=== PATIENT | male | born 1975 | race African-American/Black ===

== ENCOUNTER 2018-11-10 00:17 | Emergency (ER) | payer OTHER ==
[~2018-11-10] VITALS: Ht 188 cm; Wt 105.7 kg
[~2018-11-10 00:17] MED LIST: CYCL10TA7 PO; MELO7.5T38 PO; NAPR-985 PO
[2018-11-10] MEDS ORDERED: KETOROLAC 30 MG INJ IM STA (00:34)
[2018-11-10 00:55] VITALS: Ht 188 cm; Wt 105.7 kg
[2018-11-10 01:28] VITALS: BP 166/97; PULSE 61; RESP 18
== END 2018-11-10 01:25 | disposition home or self-care (01) ==
LOC: FTE 00:17
DX: M25.511 Pain in right shoulder (principal)
CPT/HCPCS: 96372

== ENCOUNTER → 2018-11-12 | Emergency (ER) | payer OTHER ==
[~2018-11-12] VITALS: Ht 188 cm; Wt 90.0 kg
[~2018-11-12] MED LIST changes: +KETOROLAC 60 MG INJ IM STA; +METHOCARBAMOL 750 MG TAB PO ONE
[2018-11-12 09:32] VITALS: BP 157/91; PULSE 90; RESP 18; Ht 188 cm; Wt 90.0 kg
--- NOTE | 2018-11-12 10:30 | ERD ---
ER Documentation Chief Complaint Chief Complaint back pain HPI Patient is a 42 years old male with no known past medical history presenting to the clinic for persistent right shoulder pain X few days. Patient was seen and evaluated on November 10, 2018 for similar symptoms and was diagnosed with muscle spasm. Patient was discharged with cyclobenzaprine and naproxen. Patient had no imaging done during last visit. Patient reports that he has made an appointment with his PCP. Patient admits that he has difficulties doing his job tasks due to shoulder pain and is requesting further medical evaluation. Denies any injury or trauma. Vision report the blue admits to some stiffness and weakness of the right arm. Patient denies any neck stiffness, fever, chills, night sweats. ROS All systems reviewed and are negative except as per history of present illness. Medications Home Meds Active Scripts Meloxicam* (Meloxicam*) 7.5 Mg Tablet, 7.5 MG PO DAILY, #30 TAB Prov:NAIF NELSON PA-C 11/12/18 Naproxen* (Naprosyn*) 500 Mg Tablet, 500 MG PO BID PRN for PAIN AND/OR INFLAMMATION, #30 TAB Prov:ABIMAEL PAGE PA-C 11/10/18 Cyclobenzaprine Hcl* (Cyclobenzaprine Hcl*) 10 Mg Tablet, 10 MG PO TID, #15 TAB Prov:ABIMAEL PAGE PA-C 11/10/18 Allergies Allergies: Coded Allergies: No Known Allergy (Unverified , 11/12/18) PMhx/Soc History of Surgery: Yes (LEG AND NECK SURGERY ) Anesthesia Reaction: No Hx Neurological Disorder: No Hx Respiratory Disorders: No Hx Cardiac Disorders: Yes (PE WAS ON COUMADIN ) Hx Psychiatric Problems: No Hx Miscellaneous Medical Probl: No Hx Alcohol Use: No Hx Substance Use: No Hx Tobacco Use: No Smoking Status: Never smoker Physical Exam Vitals Vital Signs Date Temp Pulse Resp B/P (MAP) Pulse Ox O2 O2 Flow FiO2 Time Delivery Rate 11/12/18 98.0 90 18 157/91 99 09:32 (113) Physical Exam Const: No acute distress Head: Atraumatic Resp: Clear to auscultation bilaterally Cardio: Regular rate and rhythm, no murmurs Abd: Soft, non tender, non distended. Normal bowel sounds Back: No midline or flank tenderness MSK: No shoulder tenderness. Tense muscle during palpitation right shoulder. No gross trauma, ecchymoses, hematoma noted. 5 out of 5 upper and lower extremity strength. Psych: Normal Mood and Affect Results 24 hrs Current Medications Medications Dose Sig/Janet Start Time Status Last (Trade) Ordered Route PRN Stop Time Admin Dose Reason Admin Ketorolac 60 mg ONCE STAT 11/12/18 DC 11/12/18 Tromethamine IM 09:50 11/12/18 09:59 (Toradol) 09:52 1,500 mg ONCE ONCE 11/12/18 DC 11/12/18 Methocarbamol PO 10:00 11/12/18 09:59 (Robaxin) 10:01 Procedures/MDM Patient was seen and evaluated for persistent right shoulder pain. Patient was given Toradol 60 mg IM and Robaxin 1500 mg p.o. in ED with improvement of symptoms. Right shoulder x-ray revealed Mild degenerative changes of the acromioclavicular joint. Patient is stable and ready for discharge. Patient will be discharged with meloxicam to replace naproxen and continue cyclobenzaprine. Patient was advised to follow-up with his PCP. Patient was advised about arthritic changes for his joint. Departure Diagnosis: Primary Impression: Arthritis Condition: Stable Patient Instructions: What Is Arthritis? Referrals: [facility] Additional Instructions: Patient advised to return to the ED immediately for new or worsening symptoms. Patient advised to follow up with primary care provider in the next 24-48 hours. Patient verbalized understanding and agrees with treatment plan and course of action. If patient has no primary care they may follow up with [facility] + [address] [address] or [facility] [address] [place] [address] or [address] [place] [address] NAIF NELSON PA-C Nov 12, 2018 10:30
== END | disposition home or self-care (01) ==
LOC: FTE 09:30
DX: M19.90 Unspecified osteoarthritis, unspecified site (principal)
CPT/HCPCS: 73030; J1885; 96372